=== PATIENT | male | born 1990 | race Caucasian/White ===

== ENCOUNTER 2016-10-23 14:40 | Emergency (ER) | payer OTHER ==
[~2016-10-23] VITALS: Ht 182.9 cm; Wt 87.0 kg
[~2016-10-23 14:40] MED LIST: Z.0.NO CURRENT MEDS
[2016-10-23 14:50] VITALS: BP 147/86; PULSE 91; RESP 15; TEMP 97.9; O2SAT 96
--- NOTE | 2016-10-23 14:55 | PD ---
HPI Chief Complaint: ENT Complaint Time Seen by Provider: 14:55 Travel History International Travel<30 days: No Contact w/Intl Traveler<30days: No Traveled to known affect area: No History of Present Illness HPI 26-year-old male presents to the emergency department for evaluation of left ear pain for 2 days. Patient states that 3 days ago he developed a cold with nasal congestion and runny nose. States that the next day he felt as though he had left ear pain. States that he has a history of recurrent ear infections and that quickly when he gets nasal congestion he will get an ear infection afterward. Complains of subjective fever 2 days ago. Denies any decreased hearing, cough, sore throat, dizziness, nausea, vomiting. Denies any medical conditions. No other complaints. PFSH Past Medical History Medical History: Denies Significant Hx Diminished Hearing: No Social History Alcohol Use: No Tobacco Use: No Substance Use: No Allergies-Medications (Allergen,Severity, Reaction): Coded Allergies: No Known Allergies (Verified , 10/23/16) Reported Meds & Prescriptions Reported Meds & Active Scripts Active Flonase Nasal [place] (Fluticasone Nasal [place]) 50 Mcg/Act [place] 50 Mcg EACH NARE BID Review of Systems Except as stated in HPI: all other systems reviewed are Neg Physical Exam Narrative GENERAL: Well-nourished and well-developed pleasant patient in no acute distress who is nontoxic appearing. SKIN: Warm and dry. HEAD: Normocephalic and atraumatic. EYES: No injection, drainage, or hyphema noted. PERRLA. EOMI. ENT: No nasal drainage noted. Oropharynx is clear. Right external auditory canal and tympanic membrane is within normal limits. Left external auditory canal shows cerumen impaction, no erythema or swelling. Left tympanic membrane obstructed from view due to cerumen impaction. No mastoid tenderness. NECK: Supple and the trachea is midline. CARDIOVASCULAR: Regular rate and rhythm. RESPIRATORY: Breath sounds are equal bilaterally with no accessory muscle use, wheezing, rhonchi, or crackles. NEUROLOGICAL: Awake, alert, and oriented. Normal speech and gait. Cranial nerves are grossly intact. Data Data Last Documented VS Vital Signs Date Time Temp Pulse Resp B/P Pulse Ox O2 Delivery O2 Flow Rate FiO2 10/23/16 14:50 97.9 91 15 147/86 96 Orders Ear Irrigation (10/23/16 14:54) [facility] Medical Decision Making Medical Screen Exam Complete: Yes Emergency Medical Condition: Yes Differential Diagnosis Cerumen impaction versus otitis media versus otitis externa versus URI Narrative Course 26-year-old male presents to the emergency room for evaluation of left ear pain for 2 days. Patient is afebrile, vital signs are stable. On physical examination the patient has a left cerumen impaction blocking the tympanic membranes from visualization. Ear irrigation is performed. Ear irrigation successfully removed impacted cerumen and left tympanic membrane is visualized - appears within normal limits with no erythema, bulging or loss of landmarks. Patient still has nasal congestion and therefore will be prescribed Flonase. He does not require any antibiotic therapy at this time and is advised that should his symptoms worsen or change to come back to the ED or see his personal physician. Patient verbalizes understanding and agreement with treatment plan. Diagnosis Primary Impression: Impacted cerumen of left ear Additional Impression: URI (upper respiratory infection) Qualified Code: J06.9 - Upper respiratory tract infection, unspecified type Referrals: Primary Care Physician Patient Instructions: Cerumen Impaction (ED), General Instructions, Upper Respiratory Infection (ED) Additional Instructions: Follow-up with your Primary Care Physician. Return to the ED for any acute worsening of symptoms. Med/Other Pt SpecificInfo: Prescription(s) given Scripts Fluticasone Nasal [place] (Flonase Nasal [place])50 Mcg/Act Spray50 Mcg EACH NARE BID #1 BOTTLE Ref 0 Prov:Amber Agrawal MD 10/23/16 Disposition: 01 DISCHARGE HOME Condition: Stable Karlie Figueroa Oct 23, 2016 14:55
[2016-10-23] MEDS ORDERED: FLUT1SPR5 EACH NARE (15:11)
== END 2016-10-23 15:26 | disposition home or self-care (01) ==
LOC: PHEFT 14:40
DX: H61.22 Impacted cerumen, left ear (principal); J06.9 Acute upper respiratory infection, unspecified
CPT/HCPCS: 99283